=== PATIENT | male | born 1930 | race Caucasian/White ===

== ENCOUNTER 2016-09-15 09:53 | Emergency (ER) | payer MEDICARE, OTHER ==
[2016-09-15] MEDS ORDERED: LIDOCAINE 1% 2 ML VIAL ONE (10:28)
--- NOTE | 2016-09-15 11:42 | ED Physician Documentation ---
PD HPI HEAD INJURY - Stated complaint Stated Complaint: L FACIAL LAC - Chief complaint Chief Complaint: Laceration - History obtained from History obtained from: Patient, Family - History of Present Illness Mechanism of head injury: Fell Where head injury occurred: Home Timing - onset: Today Location of injury: Left (eye) Quality of pain: Pain Associated symptoms: Other (large laceration under the left eye). No: LOC, AMS , Amnesia, Nausea / vomiting, Neck pain, Paresthesias, Seizures, Ear drainage, Nasal drainage Symptoms improve with: Rest Symptoms worsen with: Palpation, Movement Similar symptoms before: Has not had sx before Recently seen: Not recently seen - Additional information Additional information: 85 y/o male with a history of hypertension was breaking a stick in his yard today and when the stick broke he fell forward onto a tree stump and contused his left lower eyelid. No LOC but a large laceration directly below the eye. He has no obstruction to movement of the left eye and he has no visual changes. Review of Systems Constitutional: denies: Fever, Chills, Myalgias Eyes: denies: Loss of vision, Decreased vision, Photophobia, Discharge, Irritation Ears: denies: Ear pain Nose: denies: Rhinorrhea / runny nose, Congestion Throat: denies: Sore throat Cardiac: denies: Chest pain / pressure, Palpitations Respiratory: denies: Dyspnea, Cough GI: denies: Abdominal Pain, Nausea, Vomiting, Constipation, Diarrhea : denies: Dysuria Skin: reports: Laceration (s) Musculoskeletal: denies: Neck pain, Back pain, Extremity pain Neurologic: reports: Head injury. denies: Headache, LOC PD PAST MEDICAL HISTORY - Present Medications Home Medications: Ambulatory Orders Medication Instructions Recorded Confirmed Aspirin 81 mg PO 09/15/16 Atenolol 50 mg PO 09/15/16 Atorvastatin [Lipitor] 0 mg 09/15/16 Citalopram Hydrobromide 40 mg PO 09/15/16 [Citalopram HBr] Enalapril [Vasotec] 09/15/16 Fexofenadine HCl [Hayley Allergy] 60 mg PO 09/15/16 Fludrocortisone [Florinef] 0.1 mg PO DAILY 09/15/16 09/15/16 Furosemide 40 mg PO 09/15/16 Montelukast [Singulair] 10 mg PO QPM 09/15/16 09/15/16 metFORMIN [Glucophage] 500 mg PO BIDWM 09/15/16 09/15/16 - Allergies Allergies/Adverse Reactions: Allergies Allergy/AdvReac Type Severity Reaction Status Date / Time cephalexin monohydrate * Allergy Unknown Verified 09/15/16 12:48 [From Keflex] guaifenesin [From Mucinex] Allergy Unknown Verified 09/15/16 10:03 Penicillins Allergy Unknown Verified 09/15/16 10:03 tetracycline Allergy Unknown Verified 09/15/16 10:03 PD ED PE NORMAL - Vitals Vital signs reviewed: Yes (normal ) - General General: No acute distress, Well developed/nourished, Other (A pleasant 85 y/o male who appears younger than his stated age. ) - HEENT HEENT: PERRL, EOMI, Other (There is a 4cm laceration under the left eye over the cheek and below the eyelid. The eye itself is not involved and deeper structures are not involved. 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, No motor deficit, No sensory deficit, Normal speech - Psych Psych: Normal mood, Normal affect Results - Vitals Vitals: Vital Signs - 24 hr 09/15/16 09/15/16 09:59 12:06 Temperature 37.2 C Heart Rate 69 61 Respiratory 14 16 Rate Blood Pressure 140/69 H 123/62 O2 Saturation 96 98 Oxygen O2 Source Room air Procedures - Laceration (location) left cheek Length in cm: 4 Wound type: Linear, Flap, Clean Neurovascular status: Sensory intact, Motor intact, Vascular intact Anesthesia: Lidocaine 1% Wound Preparation: Hibiclens, Irrigated copiously NS, Wound explored, To the base Skin layer closure: Nylon, Running, Size #-0 - enter number (6-0) Other: Patient tolerated well, No complications, Neurovascular intact Complexity: Simple PD MEDICAL DECISION MAKING - ED course Complexity details: re-evaluated patient, considered differential, d/w patient, d/w family ED course: 85 y/o Otherwise well male has fallen today against a tree stump and lacerated his left cheek. He has a flap laceration under the left eye that consists of a thin layer of skin which is reapproximated to the lid and the patient tolerates this well. Departure - Departure Disposition: 01 Home, Self Care Clinical Impression: Laceration of cheek Qualifiers: Encounter type: initial encounter Laterality: left Qualified Code(s): S01.412A - Laceration without foreign body of left cheek and temporomandibular area, initial encounter Condition: Stable Instructions: ED Laceration Facial Sutr Tape Follow-Up: Keron Ching MD [Primary Care Provider] - Comments: sutures out in 5 days Discharge Date/Time: 09/15/16 12:08
[2016-09-15 12:08] VITALS: BP 123/62
== END 2016-09-15 12:08 | disposition home or self-care (01) ==
LOC: ED 09:53
DX: S01.412A Laceration without foreign body of left cheek and temporomandibular area, initial encounter (principal); W19.XXXA Unspecified fall, initial encounter; W22.09XA Striking against other stationary object, initial encounter; Y93.89 Activity, other specified; Y92.007 Garden or yard of unspecified non-institutional (private) residence as the place of occurrence of the external cause; I10 Essential (primary) hypertension
CPT/HCPCS: 12013; 99282; 99283

== ENCOUNTER 2017-12-07 23:03 | Emergency (ER) | payer MEDICARE, OTHER ==
[2017-12-07] MEDS ORDERED: ONDANSETRON 4 MG/2 ML VIAL IVP STA (23:13)
[2017-12-07] MEDS ORDERED: SODIUM CHLORIDE 0.9% 1,000 ML IV ONE (23:13)
--- NOTE | 2017-12-07 23:14 | ED Physician Documentation ---
PD HPI NVD - Stated complaint Stated Complaint: VOMITING - History obtained from History obtained from: Patient, Family - History of Present Illness Timing - onset: Today Timing - details: Gradual onset, Still present Associated symptoms: Abdominal pain Contributing factors: No: Sick contact, Bad food Similar symptoms before: No diagnosis Recently seen: Not recently seen - Additonal information Additional information: Patient is an 87 year old male who is presenting to the emergency department for nausea and vomiting. patient reports a little discomfort this morning, but was ok throughout the day. patient had spaghetti and meatballs for dinner and this evening had multiple episodes of vomiting. Review of Systems Ten Systems: 10 systems reviewed and negative Constitutional: reports: Chills Cardiac: denies: Chest pain / pressure, Palpitations Respiratory: denies: Dyspnea, Cough GI: reports: Abdominal Pain, Nausea, Vomiting. denies: Constipation, Diarrhea : denies: Dysuria, Frequency PD PAST MEDICAL HISTORY - Past Medical History Cardiovascular: Hypertension, High cholesterol Respiratory: None Endocrine/Autoimmune: None GI: GERD : None HEENT: None Psych: Depression Musculoskeletal: Other Derm: None - Past Surgical History Past Surgical History: Yes General: Cholecystectomy, Other Ortho: Rotator cuff repair, Carpal Tunnel surgery Cardiovascular: Cardiac catheterization, Other Neuro: Other - Present Medications Home Medications: Ambulatory Orders Medication Instructions Recorded Confirmed Aspirin 81 mg PO 09/15/16 Atenolol 50 mg PO 09/15/16 Atorvastatin [Lipitor] 0 mg 09/15/16 Citalopram Hydrobromide 40 mg PO 09/15/16 [Citalopram HBr] Enalapril [Vasotec] 09/15/16 Fexofenadine HCl [Hayley Allergy] 60 mg PO 09/15/16 Fludrocortisone [Florinef] 0.1 mg PO DAILY 09/15/16 09/15/16 Furosemide 40 mg PO 09/15/16 Montelukast [Singulair] 10 mg PO QPM 09/15/16 09/15/16 metFORMIN [Glucophage] 500 mg PO BIDWM 09/15/16 09/15/16 Ondansetron Odt [Zofran] 4 mg TL Q6H PRN #14 tablet 12/08/17 - Allergies Allergies/Adverse Reactions: Allergies Allergy/AdvReac Type Severity Reaction Status Date / Time cephalexin monohydrate * Allergy Unknown Verified 12/07/17 23:16 [From Keflex] guaifenesin [From Mucinex] Allergy Unknown Verified 12/07/17 23:16 Penicillins Allergy Unknown Verified 12/07/17 23:16 tetracycline Allergy Unknown Verified 12/07/17 23:16 - Social History Does the pt smoke?: No Smoking Status: Never smoker - Immunizations Immunizations are current?: Yes PD ED PE NORMAL - Vitals Vital signs reviewed: Yes - General General: Alert and oriented X 3 - HEENT HEENT: Atraumatic - Cardiac Cardiac: RRR - Respiratory Respiratory: No respiratory distress - Derm Derm: Normal color, Warm and dry - Extremities Extremities: No deformity - Neuro Neuro: Alert and oriented X 3, No motor deficit, Normal speech Eye Opening: Spontaneous PD ED PE EXPANDED - HEENT HEENT: Dry mucous membranes - Abdomen Abdomen: Tender to palpation, Generalized/diffuse Results - Vitals Vitals: Vital Signs - 24 hr 12/07/17 12/08/17 12/08/17 23:12 00:39 01:25 Temperature 37.6 C H Heart Rate 87 88 Respiratory 22 17 28 H Rate Blood Pressure 151/84 H 119/71 O2 Saturation 100 95 12/08/17 02:57 Temperature Heart Rate 96 Respiratory 21 Rate Blood Pressure 107/55 L O2 Saturation 98 Oxygen O2 Source Room air - EKG (time done) 2319 Rate: Rate (enter#) (86) Rhythm: NSR [place]: Normal Intervals: Normal AR QRS: Normal - Labs Labs: Laboratory Tests 12/07/17 12/07/17 12/07/17 23:20 23:20 23:20 WBC 3.7 L RBC 4.25 L Hgb 13.6 L Hct 39.7 L MCV 93.6 MCH 32.1 H MCHC 34.3 RDW 13.8 Plt Count 207 MPV 7.9 Neut # (Auto) 3.0 Lymph # (Auto) 0.6 L [place] # (Auto) 0.0 Eos # (Auto) 0.0 Baso # (Auto) 0.0 Absolute Nucleated RBC 0.00 Nucleated RBC % 0.1 Sodium 137 Potassium 3.8 Chloride 102 Carbon Dioxide 24 Anion Gap 11.0 BUN 25 H Creatinine 1.4 H Estimated GFR (MDRD) 48 L Glucose 133 H Calcium 8.8 Total Bilirubin 0.9 AST 88 H ALT 80 H Alkaline Phosphatase 107 Troponin I < 0.04 B-Natriuretic Peptide Total Protein 7.4 Albumin 4.2 Globulin 3.2 Albumin/Globulin Ratio 1.3 Lipase 46 Urine Color Urine Clarity Urine pH Ur Specific [place] Urine Protein Urine Glucose (UA) Urine Ketones Urine Occult Blood Urine Nitrite Urine Bilirubin Urine Urobilinogen Ur Leukocyte Esterase Ur Microscopic Review Urine Culture Comments 12/07/17 12/08/17 12/08/17 23:20 01:00 02:05 WBC RBC Hgb Hct MCV MCH MCHC RDW Plt Count MPV Neut # (Auto) Lymph # (Auto) [place] # (Auto) Eos # (Auto) Baso # (Auto) Absolute Nucleated RBC Nucleated RBC % Sodium Potassium Chloride Carbon Dioxide Anion Gap BUN Creatinine Estimated GFR (MDRD) Glucose Calcium Total Bilirubin AST ALT Alkaline Phosphatase Troponin I 0.05 B-Natriuretic Peptide 171 H Total Protein Albumin Globulin Albumin/Globulin Ratio Lipase Urine Color YELLOW Urine Clarity CLEAR Urine pH 6.0 Ur Specific [place] 1.020 Urine Protein NEGATIVE Urine Glucose (UA) NEGATIVE Urine Ketones NEGATIVE Urine Occult Blood NEGATIVE Urine Nitrite NEGATIVE Urine Bilirubin NEGATIVE Urine Urobilinogen 0.2 (NORMAL) Ur Leukocyte Esterase NEGATIVE Ur Microscopic Review NOT INDICATED Urine Culture Comments NOT INDICATED - Rads (name of study) ct abd pelvis Radiology: Final report received (no acute findings) PD MEDICAL DECISION MAKING - ED course Complexity details: reviewed old records, reviewed results, re-evaluated patient, considered differential, d/w patient ED course: Patient was seen and examined at bedside. iv access was gained and labs were drawn. patient was treated with a fluid bolus and zofran. ekg was performed and showed no acute abnormalities. Imaging was ordered. When patient returned from imaging he was re-evaluated. patient's nausea had improved and patient was able to tolerate po. Patient's diagnostics were within normal limits and patient was stable for discharge with outpatient followup. - Sepsis Event Vital Signs: Vital Signs - 24 hr 12/07/17 12/08/17 12/08/17 23:12 00:39 01:25 Temperature 37.6 C H Heart Rate 87 88 Respiratory 22 17 28 H Rate Blood Pressure 151/84 H 119/71 O2 Saturation 100 95 12/08/17 02:57 Temperature Heart Rate 96 Respiratory 21 Rate Blood Pressure 107/55 L O2 Saturation 98 Oxygen O2 Source Room air Departure - Departure Disposition: 01 Home, Self Care Clinical Impression: Nausea & vomiting Condition: Good Instructions: ED Nausea Vomiting Follow-Up: primary,care provider [Other] [facility] [Provider Group] - Tomorrow Prescriptions: Ondansetron Odt [Zofran] 4 mg TL Q6H PRN #14 tablet PRN Reason: Nausea / Vomiting Comments: Your diagnostics today are within normal limits. You have been prescribed zofran for nausea and stay well hydrated. You should follow up with the [facility] to find a primary care physician. You should return to the emergency department for new, worsening or uncontrollable symptoms. Discharge Date/Time: 12/08/17 02:58
[2017-12-07 23:29] LABS: BASOPHILS % (AUTO) 0.4 %; EOSINOPHILS % (AUTO) 1.1 %; HGB - HEMOGLOBIN 13.6 g/dL (14.0-18.0); LYMPHOCYTES # (AUTO) 0.6 10^3/uL (1.5-3.5); LYMPHOCYTES % (AUTO) 16.4 %; MEAN CORPUSCULAR HEMOGLOBIN 32.1 pg (27.0-31.0); MEAN CORPUSCULAR HGB CONC 34.3 g/dL (32.0-36.0); MEAN CORPUSCULAR VOLUME 93.6 fL (80.0-94.0); MEAN PLATELET VOLUME 7.9 fL (7.4-11.4); MONOCYTES % (AUTO) 0.6 %; NEUTROPHILS % (AUTO) 81.5 %; PLT - PLATELET COUNT 207 10^3/uL (130-450); RED BLOOD COUNT 4.25 10^6/uL (4.70-6.10); RED CELL DISTRIBUTION WIDTH 13.8 % (12.0-15.0); WHITE BLOOD COUNT 3.7 x10^3/uL (4.8-10.8)
--- NOTE | 2017-12-07 23:39 | XRAY Report ---
Reason: chest pain Procedure Date: 12/07/2017 Accession Number: [id number] / [id number] Procedure: XR - Chest 1 View X-Ray CPT Code: 82890 FULL RESULT: EXAM: CHEST RADIOGRAPHY EXAM DATE: 12/07/2017 11:17 PM. CLINICAL HISTORY: Chest pain. COMPARISON: None. TECHNIQUE: 1 view. FINDINGS: Lungs/Pleura: Minimal left basilar airspace disease. No effusion or pneumothorax. Mediastinum: Changes of previous cardiac surgery. Other: None. IMPRESSION: Minimal left basilar airspace disease. RADIA
[2017-12-07 23:43] LABS: BILIRUBIN,TOTAL 0.9 mg/dL (0.2-1.0); CALCIUM 8.8 mg/dL (8.5-10.3); CREATININE 1.4 mg/dL (0.6-1.2)
[2017-12-07 23:44] LABS: ALBUMIN 4.2 g/dL (3.2-5.5); ALBUMIN/GLOBULIN RATIO 1.3 (1.0-2.2); TOTAL PROTEIN 7.4 g/dL (6.7-8.2)
[2017-12-07] MEDS ORDERED: IOPAMIDOL-300 100 ML VIAL ONE (23:58)
[2017-12-08] MEDS ORDERED: IOPAMIDOL-300 100 ML VIAL IVP ONE (00:47)
--- NOTE | 2017-12-08 01:08 | CT Report ---
Reason: vomiting, abd pain multiple surgeries Procedure Date: 12/08/2017 Accession Number: [id number] / [id number] Procedure: CT - Abdomen/Pelvis W/ CPT Code: FULL RESULT: EXAM: CT ABDOMEN AND PELVIS EXAM DATE: 12/08/2017 12:51 AM. CLINICAL HISTORY: Vomiting, abd pain multiple surgeries. COMPARISONS: None. TECHNIQUE: Routine helical CT imaging was performed through the abdomen and pelvis. IV contrast: 100 ML ISOVUE 300. Enteric contrast: No. Reconstructions: Coronal and sagittal. In accordance with CT protocol optimization, one or more of the following dose reduction techniques were utilized for this exam: automated exposure control, adjustment of mA and/or KV based on patient size, or use of iterative reconstructive technique. FINDINGS: Lung Bases: Small hiatal hernia. Liver: Normal. No masses. Gallbladder/Bile Ducts: Changes of cholecystectomy. No biliary dilatation. Spleen: Normal. Pancreas: Normal. Adrenal Glands: Normal. Kidneys: Incidental cortical cyst. No hydronephrosis or nephrolithiasis. Peritoneal Cavity/Bowel: Normal. No free fluid, free air or adenopathy. No masses or acute inflammatory process. Colonic diverticulosis, without CT evidence of diverticulitis. The appendix is well visualized and normal. Pelvic Organs: Normal. The bladder and visualized pelvic organs are within normal limits. Vasculature: No aneurysms or other significant abnormality. Bones: Degenerative changes. Other: None. IMPRESSION: No evident etiology for patient's nausea and vomiting. RADIA
[2017-12-08 01:12] LABS: BILIRUBIN,URINE NEGATIVE (NEGATIVE); GLUCOSE, URINE (UA) NEGATIVE (NEGATIVE); KETONES,URINE (UA) NEGATIVE (NEGATIVE); LEUKOCYTE ESTERASE, URINE NEGATIVE (NEGATIVE); NITRITE,URINE NEGATIVE (NEGATIVE); OCCULT BLOOD,URINE NEGATIVE (NEGATIVE); PROTEIN,URINE NEGATIVE (NEGATIVE); UROBILINOGEN,URINE 0.2 (NORMAL) E.U./dL (NORMAL)
[2017-12-08 01:14] LABS: CLARITY,URINE CLEAR (CLEAR)
[2017-12-08 02:58] VITALS: BP 107/55
== END 2017-12-08 02:58 | disposition home or self-care (01) ==
LOC: ED 23:03
DX: R11.2 Nausea with vomiting, unspecified (principal); I10 Essential (primary) hypertension
CPT/HCPCS: 36415; 71045; 74177; 80053; 81003; 83690; 83880; 84484; 85025; 93005; 96361; 96374; 99283; 99284; Q9967; 81001; 87086

== ENCOUNTER 2019-08-10 08:32 | Outpatient (CLI) | payer MEDICARE, OTHER ==
--- NOTE | 2019-08-10 16:22 | Nuclear Medicine Report ---
Reason: PROSTATE CA Procedure Date: 08/10/2019 Accession Number: [id number] / [id number] Procedure: NM - Bone Whole Body CPT Code: Final Report FULL RESULT: EXAM: BONE SCAN EXAM DATE: 08/10/2019 01:10 PM. CLINICAL HISTORY: Prostate CA. COMPARISON: ABDOMEN/PELVIS W12/08/2017 12:16 AM. TECHNIQUE: Following the intravenous administration of 30.2 mCi of technetium 99m MDP and an appropriate delay, a whole-body scan was performed in anterior and posterior projections. Spot images were not obtained. FINDINGS: Exam Quality: Normal overall osseous radiotracer uptake. Physiological tracer uptake in bilateral collecting systems. Skull: No focal uptake. Thorax: No focal lesions in ribs or sternum. Pelvis: No focal lesions. Spine: No suspicious focal uptake in the cervical or thoracic or lumbar spine. Small foci of presumed degenerative facet uptake on the sides of the cervical spine. Mild linear presumably degenerative endplate uptake in the midthoracic spine. Extremities: There is a tiny focus of increased tracer uptake in the proximal right femur at the level of the lesser trochanter. Areas of increased tracer uptake in the right shoulder, bilateral wrists, bilateral knees, bilateral ankles, and bilateral feet are presumably degenerative. IMPRESSION: 1. There is a small focus in the proximal right femur which could be a metastasis. 2. No additional highly suspicious findings. Presumed degenerative uptake in several joints. RADIA
== END 2019-08-10 08:33 | disposition home or self-care (01) ==
LOC: DI 08:32
PROVIDERS: ATTEND Internal Medicine Hematology & Oncology
DX: C61 Malignant neoplasm of prostate (principal); R97.20 Elevated prostate specific antigen [PSA]; R93.3 Abnormal findings on diagnostic imaging of other parts of digestive tract; R59.0 Localized enlarged lymph nodes
CPT/HCPCS: 78306

== ENCOUNTER 2020-04-16 09:30 | Emergency (ER) | payer MEDICARE, OTHER ==
--- NOTE | 2020-04-16 09:40 | ED Physician Documentation ---
PD HPI LOWER EXT INJURY - Stated complaint Stated Complaint: RT PX/SWELLING - History obtained from History obtained from: Patient - History of Present Illness PD HPI LOW EXT INJURY LOCATION: Right (89-year-old gentleman with history of prostate cancer and gout presents with atraumatic right foot pain over the last 36 hours or so. It hurts to walk but pain is not too bad at rest. He declines pain medication on initial evaluation.) Review of Systems Constitutional: denies: Fever, Chills GI: denies: Abdominal Pain, Nausea, Vomiting : reports: Reviewed and negative PD PAST MEDICAL HISTORY - Past Medical History Cardiovascular: Hypertension, High cholesterol Respiratory: None Endocrine/Autoimmune: None GI: GERD : None HEENT: None Psych: Depression Musculoskeletal: Other Derm: None - Past Surgical History Past Surgical History: Yes General: Cholecystectomy, Other Ortho: Rotator cuff repair, Carpal Tunnel surgery Cardiovascular: Cardiac catheterization, Other Neuro: Other - Present Medications Home Medications: Ambulatory Orders Medication Instructions Recorded Confirmed Citalopram Hydrobromide 20 mg PO DAILY 09/15/16 04/16/20 [Citalopram HBr] Enalapril [Vasotec] 5 mg PO BID 09/15/16 04/16/20 Furosemide 40 mg PO BID 09/15/16 04/16/20 atenoloL [Atenolol] 0.5 tab PO BID 09/15/16 04/16/20 Acetaminophen [Arthritis Pain 650 mg PO DAILY 08/01/19 04/16/20 Relief] Cetirizine HCl [Allergy Relief] 10 mg PO BID 08/01/19 04/16/20 Finasteride 5 mg PO DAILY 08/01/19 04/16/20 Flaxseed Oil 1,200 mg PO DAILY 08/01/19 04/16/20 Glucos Sul 2Kcl/MSM/Chond/C/Mn 1 cap PO DAILY 08/01/19 04/16/20 [Glucosamine Chondroitin Cap] Multivitamin 1 tab PO DAILY 08/01/19 04/16/20 Tamsulosin HCl [Flomax] 0.4 mg PO QPM 08/01/19 04/16/20 Vitamin B Complex/Folic Acid 1 tab PO DAILY 08/01/19 04/16/20 [Super B Maxi Complex Caplet] Bicalutamide [Casodex] 50 mg PO DAILY 08/02/19 04/16/20 HYDROcod/ACETAM 5/325 [[place] 5/325] 1 - 2 tab PO Q6H PRN #15 tablet 04/16/20 predniSONE [Deltasone] 60 mg PO DAILY 5 Days #15 tablet 04/16/20 - Allergies Allergies/Adverse Reactions: Allergies Allergy/AdvReac Type Severity Reaction Status Date / Time cephalexin monohydrate * Allergy Unknown Verified 04/16/20 09:44 [From Keflex] guaifenesin [From Mucinex] Allergy Unknown Verified 04/16/20 09:44 Penicillins Allergy Unknown Verified 04/16/20 09:44 tetracycline Allergy Unknown Verified 03/05/20 11:56 - Social History Does the pt smoke?: No Smoking Status: Former smoker Does the pt drink ETOH?: No Does the pt have substance abuse?: No - Immunizations Immunizations are current?: Yes - POLST Patient has POLST: No PD ED PE NORMAL - Vitals Vital signs reviewed: Yes - General General: Alert and oriented X 3, No acute distress - Extremities Extremities: Other (No specific warmth, redness, or tenderness anywhere around the right foot, but he does have pain with passive motion of the great toe. Pulses are weak but capillary refill is normal.) - Neuro Neuro: Alert and oriented X 3, Normal speech Results - Vitals Vitals: Vital Signs - 24 hr 04/16/20 04/16/20 09:34 10:34 Temperature 37.2 C Heart Rate 90 80 Respiratory 16 18 Rate Blood Pressure 155/97 H 120/71 O2 Saturation 97 98 Oxygen O2 Source Room air - Labs Labs: Laboratory Tests 04/16/20 04/16/20 09:46 09:46 WBC 9.8 RBC 3.95 L Hgb 12.5 L Hct 38.2 L MCV 96.7 H MCH 31.6 H MCHC 32.7 RDW 12.8 Plt Count 240 MPV 9.4 Neut # (Auto) 6.0 Lymph # (Auto) 2.5 [place] # (Auto) 1.2 H Eos # (Auto) 0.1 Baso # (Auto) 0.0 Absolute Nucleated RBC 0.00 Nucleated RBC % 0.0 Sodium 142 Potassium 4.1 Chloride 97 L Carbon Dioxide 27 Anion Gap 18.0 H BUN 36 H Creatinine 1.8 H Estimated GFR (MDRD) 36 L Glucose 118 H Uric Acid 8.3 H Calcium 9.5 PD MEDICAL DECISION MAKING - ED course ED course: This is most likely gout exacerbation, but he does not have the typical warmth or redness around the first MTP. He does have pain with passive range of motion of the MTP. Differential diagnosis would include metastases given his known active prostate cancer or very early infection. 89-year-old gentleman presents with what seems like a gout exacerbation. His uric acid level is high, his renal function is at his baseline. Three-view x- ray of the right foot interpreted contemporaneously by me shows osseous erosions of the fourth and middle phalanges. 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 He was not administered colchicine or NSAIDs given his baseline poor renal function. 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 Should be better in a couple of days but follow-up with your doctor regardless. Discharge Date/Time: 04/16/20 10:47
[2020-04-16 09:51] LABS: BASOPHILS % (AUTO) 0.4 %; EOSINOPHILS # (AUTO) 0.1 10^3/uL (0.0-0.7); EOSINOPHILS % (AUTO) 0.7 %; HGB - HEMOGLOBIN 12.5 g/dL (14.0-18.0); LYMPHOCYTES # (AUTO) 2.5 10^3/uL (1.5-3.5); LYMPHOCYTES % (AUTO) 25.2 %; MEAN CORPUSCULAR HEMOGLOBIN 31.6 pg (27.0-31.0); MEAN CORPUSCULAR HGB CONC 32.7 g/dL (32.0-36.0); MEAN CORPUSCULAR VOLUME 96.7 fL (80.0-94.0); MEAN PLATELET VOLUME 9.4 fL (7.4-11.4); MONOCYTES # (AUTO) 1.2 10^3/uL (0.0-1.0); MONOCYTES % (AUTO) 12.3 %; NEUTROPHILS % (AUTO) 61.1 %; PLT - PLATELET COUNT 240 10^3/uL (130-450); RED BLOOD COUNT 3.95 10^6/uL (4.70-6.10); RED CELL DISTRIBUTION WIDTH 12.8 % (12.0-15.0); WHITE BLOOD COUNT 9.8 x10^3/uL (4.8-10.8)
[2020-04-16 10:05] LABS: CALCIUM 9.5 mg/dL (8.5-10.3); CREATININE 1.8 mg/dL (0.6-1.2); URIC ACID 8.3 mg/dL (2.6-7.2)
--- NOTE | 2020-04-16 10:27 | XRAY Report ---
PROCEDURE: Foot 3 View RT INDICATIONS: foot pain TECHNIQUE: 3 views of the foot were acquired. COMPARISON: None FINDINGS: Bones: No fractures or dislocations. Osseous erosions involving the fourth distal and middle phalang es concerning for either neoplastic process or osteomyelitis. Midfoot osteoarthritis. Dorsal and plan tar calcaneal bone spurs. Soft tissues: No tibiotalar joint effusion. Achilles tendon appears normal. Soft tissue swelling i n the fourth digit. No soft tissue gas. IMPRESSION: 1. Osseous erosion involving the fourth distal and middle phalanges which could be related to osteomy elitis or neoplastic process. 2. Osteoarthritis. Reviewed by: Halle Mccullough MD, PhD on 04/16/2020 9:25 AM [facility] Approved by: Halle Mccullough MD, PhD on 04/16/2020 9:25 AM [facility] Station ID: [id number]
[2020-04-16] MEDS ORDERED: predniSONE 20 MG TABLET PO STA (10:33)
[2020-04-16 10:35] VITALS: BP 120/71
== END 2020-04-16 10:47 | disposition home or self-care (01) ==
LOC: ED 09:30
DX: M10.371 Gout due to renal impairment, right ankle and foot (principal); M19.071 Primary osteoarthritis, right ankle and foot; Z85.46 Personal history of malignant neoplasm of prostate; I10 Essential (primary) hypertension; Z87.891 Personal history of nicotine dependence
CPT/HCPCS: 36415; 73630; 80048; 84550; 85025; 99283; 99284; J7512

== ENCOUNTER 2020-08-29 12:08 | Emergency (ER) | payer MEDICARE, OTHER ==
--- OUTSIDE RECORDS SUMMARY | 2020-08-29 12:12 | EXTERNAL MEDICAL SUMMARY RPT | Continuity of Care Document ---
:1930 Demographics Phone Unavailable Preferred Language Canadian Marital Status Unknown Yazdanism Affiliation Unknown Race Unknown Ethnic Group Unknown Author Organization [facility] Address [address] [place] [address] Phone Care Team Providers Name Role Phone Ruth Unavailable Unavailable Allergies Encounters Medications Problems Procedures date description facility [id number] [facility] Results Vital Signs date measurement value source 20200614 temperature_standard 98.4 F 20200614 temperature_metric 36.89 C 20200614 respiration_rate 16 /min 20200614 heart_rate 81 /min 20200614 BP_systolic 130 mm[Hg] [id number] BP_diastolic 79 mm[Hg]
--- NOTE | 2020-08-29 12:41 | XRAY Report ---
PROCEDURE: Chest 1 View X-Ray INDICATIONS: Chest Pain TECHNIQUE: One view of the chest was acquired. COMPARISON: Chest xray 08/29/20 FINDINGS: Surgical changes and devices: None. Lungs and pleura: No pleural effusions or pneumothorax. Mild increased pulmonary vascularity. Mediastinum: Mediastinal contours appear normal. Heart size is normal. Bones and chest wall: No suspicious bony lesions. Overlying soft tissues appear unremarkable. IMPRESSION: Mild increased pulmonary vascularity suggestive of edema. Reviewed by: Natali Jansen MD on 08/29/2020 12:40 PM PDT Approved by: Natali Jansen MD on 08/29/2020 12:40 PM PDT Station ID: [id number]
[2020-08-29 12:43] LABS: BASOPHILS # (AUTO) 0.1 10^3/uL (0.0-0.1); BASOPHILS % (AUTO) 0.5 %; EOSINOPHILS # (AUTO) 0.6 10^3/uL (0.0-0.7); EOSINOPHILS % (AUTO) 6.3 %; HCT - HEMATOCRIT 36.7 % (42.0-52.0); HGB - HEMOGLOBIN 12.2 g/dL (14.0-18.0); LYMPHOCYTES # (AUTO) 2.5 10^3/uL (1.5-3.5); LYMPHOCYTES % (AUTO) 24.4 %; MEAN CORPUSCULAR HEMOGLOBIN 31.7 pg (27.0-31.0); MEAN CORPUSCULAR HGB CONC 33.2 g/dL (32.0-36.0); MEAN CORPUSCULAR VOLUME 95.3 fL (80.0-94.0); MEAN PLATELET VOLUME 9.3 fL (7.4-11.4); MONOCYTES # (AUTO) 0.8 10^3/uL (0.0-1.0); MONOCYTES % (AUTO) 7.7 %; NEUTROPHILS # (AUTO) 6.1 10^3/uL (1.5-6.6); NEUTROPHILS % (AUTO) 60.8 %; PLT - PLATELET COUNT 265 10^3/uL (130-450); RED BLOOD COUNT 3.85 10^6/uL (4.70-6.10); RED CELL DISTRIBUTION WIDTH 13.2 % (12.0-15.0); WHITE BLOOD COUNT 10.1 x10^3/uL (4.8-10.8)
--- OUTSIDE RECORDS SUMMARY | 2020-08-29 12:46 | EXTERNAL MEDICAL SUMMARY RPT | Continuity of Care Document ---
:1930 Demographics Phone Unavailable Preferred Language Salvadorean Marital Status Unknown Shinto Affiliation Unknown Race Unknown Ethnic Group Unknown Author Organization [facility] Address [address] [place] [address] Phone Care Team Providers Name Role Phone Ruth Unavailable Unavailable Allergies Encounters Medications Problems Procedures date description facility [id number] [facility] Results Vital Signs date measurement value source 20200614 temperature_standard 98.4 F 20200614 temperature_metric 36.89 C 20200614 respiration_rate 16 /min 20200614 heart_rate 81 /min 20200614 BP_systolic 130 mm[Hg] [id number] BP_diastolic 79 mm[Hg]
[2020-08-29 12:56] LABS: ALBUMIN 4.3 g/dL (3.2-5.5); ALBUMIN/GLOBULIN RATIO 1.4 (1.0-2.2); BILIRUBIN,TOTAL 0.5 mg/dL (0.2-1.0); CALCIUM 9.7 mg/dL (8.5-10.3); CREATININE 1.7 mg/dL (0.6-1.2); TOTAL PROTEIN 7.3 g/dL (6.7-8.2)
[2020-08-29 12:57] VITALS: BP 107/76
[2020-08-29] MEDS ORDERED: IPRATROPIUM/ALBUTEROL 3 ML NEB INH STA (13:32)
[2020-08-29] MEDS ORDERED: predniSONE 20 MG TABLET PO STA (13:34)
--- NOTE | 2020-08-29 13:36 | ED Physician Documentation ---
PD HPI DYSPNEA - Stated complaint Stated Complaint: trouble breathing, high pulse - Chief complaint Chief Complaint: Resp - History obtained from History obtained from: Patient, Family - History of Present Illness Timing - details: Gradual onset Pain level max: 0 Pain level now: 0 Improved by: Rest Worsened by: Exertion Associated symptoms: Cough (mild, dry), Wheezing. No: Fever, Hemoptysis, Chest pain / discomfort, Palpitations, Diaphoresis, Bilateral edema, Unilateral edema Recently seen: Not recently seen - Additional information Additional information: Patient is an 89-year-old male who presents to the emergency department stating that he has had difficulty breathing for the past several months, worse over the past 2 to 3 days. He is accompanied by his . Better with rest, worse with exertion. He states he uses his albuterol inhaler about 1 time per day. He is on another inhaler, but does not know what it is. He states he uses that 1 time per day as well. No chest pain. No leg swelling. No fevers. has been vaccinated for COVID. No chills. Review of Systems Ten Systems: 10 systems reviewed and negative Constitutional: denies: Fever, Chills Nose: denies: Rhinorrhea / runny nose, Congestion Respiratory: reports: Cough (mild, dry) GI: denies: Abdominal Pain, Nausea, Vomiting, Diarrhea PD PAST MEDICAL HISTORY - Past Medical History Cardiovascular: Hypertension, High cholesterol Respiratory: None Endocrine/Autoimmune: None GI: GERD : None HEENT: None Psych: Depression Musculoskeletal: Other Derm: None - Past Surgical History Past Surgical History: Yes General: Cholecystectomy, Other Ortho: Rotator cuff repair, Carpal Tunnel surgery Cardiovascular: Cardiac catheterization, Other Neuro: Other - Present Medications Home Medications: Ambulatory Orders Medication Instructions Recorded Confirmed Citalopram Hydrobromide 20 mg PO DAILY 09/15/16 06/04/20 [Citalopram HBr] Enalapril [Vasotec] 5 mg PO BID 09/15/16 06/04/20 Furosemide 40 mg PO BID 09/15/16 06/04/20 atenoloL [Atenolol] 0.5 tab PO BID 09/15/16 06/04/20 Acetaminophen [Arthritis Pain 650 mg PO DAILY 08/01/19 06/04/20 Relief] Cetirizine HCl [Allergy Relief] 10 mg PO BID 08/01/19 06/04/20 Finasteride 5 mg PO DAILY 08/01/19 06/04/20 Flaxseed Oil 1,200 mg PO DAILY 08/01/19 06/04/20 Glucos Sul 2Kcl/MSM/Chond/C/Mn 1 cap PO DAILY 08/01/19 06/04/20 [Glucosamine Chondroitin Cap] Multivitamin 1 tab PO DAILY 08/01/19 06/04/20 Tamsulosin HCl [Flomax] 0.4 mg PO QPM 08/01/19 06/04/20 Vitamin B Complex/Folic Acid 1 tab PO DAILY 08/01/19 06/04/20 [Super B Maxi Complex Caplet] Bicalutamide [Casodex] 50 mg PO DAILY 08/02/19 06/04/20 HYDROcod/ACETAM 5/325 [[place] 5/325] 1 - 2 tab PO Q6H PRN #15 tablet 04/16/20 06/04/20 predniSONE [Deltasone] 60 mg PO DAILY 5 Days #15 tablet 04/16/20 06/04/20 predniSONE [Deltasone] 40 mg PO DAILY #10 tablet 08/29/20 - Allergies Allergies/Adverse Reactions: Allergies Allergy/AdvReac Type Severity Reaction Status Date / Time cephalexin monohydrate * Allergy Unknown Verified 08/29/20 12:17 [From Keflex] guaifenesin [From Mucinex] Allergy Unknown Verified 08/29/20 12:17 Penicillins Allergy Unknown Verified 08/29/20 12:17 tetracycline Allergy Unknown Verified 08/29/20 12:17 - Social History Does the pt smoke?: No Smoking Status: Former smoker Does the pt drink ETOH?: No Does the pt have substance abuse?: No - Immunizations Immunizations are current?: Yes - POLST Patient has POLST: No PD ED PE NORMAL - Vitals Vital signs reviewed: Yes - General General: Alert and oriented X 3, No acute distress, Well developed/nourished - HEENT HEENT: PERRL, Moist mucous membranes - Neck Neck: Supple, no meningeal sign - Cardiac Cardiac: RRR - Respiratory Respiratory: No respiratory distress, Other (Diffuse wheezing bilaterally) - Abdomen Abdomen: Soft, Non tender, Non distended - Derm Derm: Warm and dry, No rash - Extremities Extremities: No edema, No calf tenderness / cord - Neuro Neuro: Alert and oriented X 3 - Psych Psych: Normal mood, Normal affect Results - Vitals Vitals: Vital Signs - 24 hr 08/29/20 08/29/20 08/29/20 12:14 12:57 13:53 Temperature 36.5 C Heart Rate 94 88 74 Respiratory 24 18 14 Rate Blood Pressure 113/65 107/76 O2 Saturation 95 97 Oxygen O2 Source Room air - EKG (time done) 1244 Rate: Rate (enter#) (81) Rhythm: Other (PAC) [place]: Normal Intervals: Normal MA QRS: Normal Ischemia: Normal ST segments - Labs Labs: Laboratory Tests 08/29/20 08/29/20 08/29/20 12:35 12:35 12:35 WBC 10.1 RBC 3.85 L Hgb 12.2 L Hct 36.7 L MCV 95.3 H MCH 31.7 H MCHC 33.2 RDW 13.2 Plt Count 265 MPV 9.3 Neut # (Auto) 6.1 Lymph # (Auto) 2.5 Orange # (Auto) 0.8 Eos # (Auto) 0.6 Baso # (Auto) 0.1 Absolute Nucleated RBC 0.00 Nucleated RBC % 0.0 Sodium 140 Potassium 4.0 Chloride 99 L Carbon Dioxide 27 Anion Gap 14.0 H BUN 32 H Creatinine 1.7 H Estimated GFR (MDRD) 38 L Glucose 136 H Calcium 9.7 Total Bilirubin 0.5 AST 33 ALT 33 Alkaline Phosphatase 91 Troponin I High Sens 15.5 B-Natriuretic Peptide Total Protein 7.3 Albumin 4.3 Globulin 3.0 Albumin/Globulin Ratio 1.4 Lipase 53 H 08/29/20 12:35 WBC RBC Hgb Hct MCV MCH MCHC RDW Plt Count MPV Neut # (Auto) Lymph # (Auto) Orange # (Auto) Eos # (Auto) Baso # (Auto) Absolute Nucleated RBC Nucleated RBC % Sodium Potassium Chloride Carbon Dioxide Anion Gap BUN Creatinine Estimated GFR (MDRD) Glucose Calcium Total Bilirubin AST ALT Alkaline Phosphatase Troponin I High Sens B-Natriuretic Peptide 36 Total Protein Albumin Globulin Albumin/Globulin Ratio Lipase - Rads (name of study) cxr Radiology: Prelim report reviewed, EMP read contemporaneously, See rad report (Mild increased pulmonary vascularity suggestive of edema. ) PD MEDICAL DECISION MAKING - ED course Complexity details: reviewed results, re-evaluated patient, considered differential, d/w patient, d/w family ED course: Is an 89-year-old male with what appears to be a COPD flare. Feels much better after DuoNeb treatment. Will place on steroids and inhalers for home. He has an albuterol inhaler at home but does not use it often. Recommend that he use this regularly. Also recommend he use his other inhaler regularly. He will follow up with his doctor for further care. No acute findings on laboratory testing, EKG or chest x-ray. No hypoxia. No respiratory distress. Patient and family counseled regarding signs and symptoms for which I believe and urgent re- evaluation would be necessary. Patient with good understanding of and agreement to plan and is comfortable going home at this time This document was made in part using voice recognition software. While efforts are made to proofread this document, sound alike and grammatical errors may occur. Departure - Departure Disposition: 01 Home, Self Care Clinical Impression: COPD exacerbation Condition: Good Instructions: ED COPD Flare Follow-Up: Roderick Ruth MD [Primary Care Provider] - Within 1 week Prescriptions: predniSONE [Deltasone] 40 mg PO DAILY #10 tablet Comments: Should be using your albuterol inhaler at least 3-4 times per day. You should be using this with the spacer. You need to follow-up with your doctor closely to see if you need to adjust your other medications. Return if you worsen. Discharge Date/Time: 08/29/20 15:43
== END 2020-08-29 15:43 | disposition home or self-care (01) ==
LOC: ED 12:08
DX: J44.1 Chronic obstructive pulmonary disease with (acute) exacerbation (principal); I49.1 Atrial premature depolarization; I10 Essential (primary) hypertension; Z87.891 Personal history of nicotine dependence
CPT/HCPCS: 36415; 71045; 80053; 83690; 83880; 84484; 85025; 93005; 94640; 99284; J7512

== ENCOUNTER 2020-11-15 05:01 | Emergency (ER) | payer MEDICARE, OTHER ==
[2020-11-15] MEDS ORDERED: EPINEPHrine 1 MG/ML AMP IM STA (05:08)
[2020-11-15] MEDS ORDERED: DEXAMETHASONE 10 MG/ML VIAL IVP STA (05:09)
[2020-11-15] MEDS ORDERED: diphenhydrAMINE INJ 50 MG/ML VIAL IVP STA (05:09)
--- NOTE | 2020-11-15 05:11 | ED Physician Documentation ---
History of Present Illness - Stated complaint Stated Complaint: CAITLIN DAVIDSON - History obtained from History obtained from: Patient, Family - History of Present Illness Timing: Prior to arrival - Additonal information Additional information: 89-year-old male has awoken with acute swelling of his tongue. He is having hard time talking and he is on Enalipril Review of Systems Constitutional: denies: Fever Eyes: denies: Decreased vision Ears: denies: Ear pain Nose: denies: Congestion Throat: reports: Other (swollen tongue) Cardiac: denies: Chest pain / pressure Respiratory: denies: Dyspnea, Cough GI: denies: Abdominal Pain, Nausea, Vomiting, Constipation, Diarrhea : denies: Dysuria Skin: denies: Rash Musculoskeletal: denies: Neck pain, Back pain, Extremity pain Neurologic: denies: Generalized weakness, Focal weakness, Numbness PD PAST MEDICAL HISTORY - Past Medical History Cardiovascular: Hypertension, High cholesterol Respiratory: None Neuro: None Endocrine/Autoimmune: None GI: GERD : None HEENT: None Psych: Depression Musculoskeletal: Other Derm: None - Past Surgical History Past Surgical History: Yes General: Cholecystectomy, Other Ortho: Rotator cuff repair, Carpal Tunnel surgery Cardiovascular: Cardiac catheterization, Other Neuro: Other - Present Medications Home Medications: Ambulatory Orders Medication Instructions Recorded Confirmed Citalopram Hydrobromide 20 mg PO DAILY 09/15/16 11/15/20 [Citalopram HBr] Enalapril [Vasotec] 5 mg PO BID 09/15/16 11/15/20 Furosemide 40 mg PO BID 09/15/16 11/15/20 atenoloL [Atenolol] 0.5 tab PO BID 09/15/16 11/15/20 Acetaminophen [Arthritis Pain 650 mg PO DAILY 08/01/19 11/15/20 Relief] Cetirizine HCl [Allergy Relief] 10 mg PO BID 08/01/19 11/15/20 Finasteride 5 mg PO DAILY 08/01/19 11/15/20 Glucos Sul 2Kcl/MSM/Chond/C/Mn 1 cap PO DAILY 08/01/19 11/15/20 [Glucosamine Chondroitin Cap] Multivitamin 1 tab PO DAILY 08/01/19 11/15/20 Tamsulosin HCl [Flomax] 0.4 mg PO QPM 08/01/19 11/15/20 Vitamin B Complex/Folic Acid 1 tab PO DAILY 08/01/19 11/15/20 [Super B Maxi Complex Caplet] flaxseed oiL [Flaxseed Oil] 1,200 mg PO DAILY 08/01/19 11/15/20 Bicalutamide [Casodex] 50 mg PO DAILY 08/02/19 11/15/20 HYDROcod/ACETAM 5/325 [[place] 5/325] 1 - 2 tab PO Q6H PRN #15 tablet 04/16/20 11/15/20 predniSONE [Deltasone] 60 mg PO DAILY 5 Days #15 tablet 04/16/20 11/15/20 predniSONE [Deltasone] 40 mg PO DAILY #10 tablet 08/29/20 11/15/20 - Allergies Allergies/Adverse Reactions: Allergies Allergy/AdvReac Type Severity Reaction Status Date / Time enalapril Allergy Severe Anaphylaxis Verified 11/15/20 05:23 cephalexin monohydrate * Allergy Unknown Verified 08/29/20 12:17 [From Keflex] guaifenesin [From Mucinex] Allergy Unknown Verified 08/29/20 12:17 Penicillins Allergy Unknown Verified 08/29/20 12:17 tetracycline Allergy Unknown Verified 08/29/20 12:17 - Social History Does the pt smoke?: No Smoking Status: Former smoker Does the pt drink ETOH?: No Does the pt have substance abuse?: No - Immunizations Immunizations are current?: Yes - POLST Patient has POLST: No PD ED PE NORMAL - Vitals Vital signs reviewed: Yes (hypertensive ) - General General: Alert and oriented X 3, No acute distress, Well developed/nourished, Other (thick tongue talk) - HEENT HEENT: Atraumatic, PERRL, EOMI, Other (marked swelling under the tongue and not to the uvula) - Neck Neck: Supple, no meningeal sign, No bony TTP - Cardiac Cardiac: RRR, No murmur, Other (single heart sound ) - Respiratory Respiratory: No respiratory distress, Clear bilaterally - Abdomen Abdomen: Soft, Non tender - Back Back: No CVA TTP, No spinal TTP - Derm Derm: Normal color, Warm and dry, No rash - Extremities Extremities: No deformity, No edema - Neuro Neuro: Alert and oriented X 3, ventilator specialist 2-12 intact, No motor deficit, No sensory deficit, Other (thick tongue talk ) Eye Opening: Spontaneous Motor: Obeys Commands Verbal: Oriented GCS Score: 15 - Psych Psych: Normal mood, Normal affect Results - Vitals Vitals: Vital Signs - 24 hr 11/15/20 11/15/20 11/15/20 05:08 05:10 05:27 Temperature 36.4 C L 36.4 C L Heart Rate 94 94 88 Respiratory 16 16 23 Rate Blood Pressure 149/80 H 149/80 H 109/61 O2 Saturation 97 97 93 11/15/20 11/15/20 11/15/20 05:40 06:10 06:30 Temperature Heart Rate 81 80 79 Respiratory 19 17 23 Rate Blood Pressure 116/62 133/79 H 110/71 O2 Saturation 92 98 93 11/15/20 07:00 Temperature Heart Rate 76 Respiratory 18 Rate Blood Pressure 108/69 O2 Saturation 93 Oxygen O2 Source Room air PD MEDICAL DECISION MAKING - ED course Complexity details: reviewed old records, reviewed results, re-evaluated patient, considered differential, d/w family ED course: 89-year-old male on enalapril has developed an acute swollen tongue in the middle of the night and he comes into the emergency department without difficulty breathing but difficult time talking. He does not have any swelling to the uvula. He is administered epinephrine 0.3 mg IM and intravenous Benadryl and dexamethasone 50 and 10. He has improvement. At shift change care is turned over to Dr. Rothman with expectation of continued improvement. Departure - Departure Clinical Impression: Angioedema Qualifiers: Encounter type: initial encounter Qualified Code(s): T78.3XXA - Angioneurotic edema, initial encounter Condition: Stable Instructions: ED Angioedema Follow-Up: Roderick Ruth MD [Primary Care Provider] - Comments: today it appears the swelling to your tongue is related to the use of enalipril and you will need to stop this medication. You may or may not need to replace this medication with a different blood pressure control medication follow up with Dr. Ruth. In the mean time the recommendation is to take benadryl 25mg every 6 hours for the next 2 days (or a non-sedating antihistamine such as joshua or zyrtec)
[2020-11-15 08:33] VITALS: BP 118/76
--- NOTE | 2020-11-15 08:46 | ED Physician Documentation ---
ED Addendum - Addendum Addendum: 11/15/20 08:46 Patient signed out to me by Dr. Tesfaye, he has had steady improvement throughout an observation period. At this point he is still talking little funny and there is angioedema of the anterolateral left side of the tongue but the retropharynx and posterior oropharynx are well visualized and without any evidence of angioedema. Counseled at length not to take enalapril or any blood pressure medicines in that class ending in "pril." Disposition: Discharged home Condition: Stable
== END 2020-11-15 08:59 | disposition home or self-care (01) ==
LOC: ED 05:01
DX: T78.3XXA Angioneurotic edema, initial encounter (principal); I10 Essential (primary) hypertension
CPT/HCPCS: 36415; 96372; 96374; 96375; 99283; J1200

== ENCOUNTER 2021-01-28 15:06 | Outpatient (CLI) | payer MEDICARE, OTHER | END 2021-01-28 23:59 | disposition critical access hospital (66) | LOC: EMS 15:06 | DX: R26.81 Unsteadiness on feet (principal) | CPT/HCPCS: A0425; A0429 ==

== ENCOUNTER 2021-01-28 15:26 | Emergency (ER) | payer MEDICARE, OTHER ==
[2021-01-28] MEDS ORDERED: SODIUM CHLORIDE 0.9% 1,000 ML IV STA (15:39)
--- NOTE | 2021-01-28 15:42 | ED Physician Documentation ---
History of Present Illness - Stated complaint Stated Complaint: SWOLLEN FEET - History obtained from History obtained from: Patient - Additonal information Additional information: Patient comes emergency department chief complaint of bilateral lower extremity weakness that started when patient was in [employer] yesterday. When asked what he thinks may have triggered this, he just states "old age". Patient states he has not felt sick with anything recently. He has a longstanding history of COPD and smoked all of his adult life until 20 years ago. He does not use home O2. Patient states he also has asthmatic bronchitis. He states he has a chronic cough but that the cough is not any worse now than it usually is. No dysuria. No nausea or vomiting. No abdominal pain. Patient states he has noticed some increased edema in his lower extremities but that he always has some degree of edema. He states that when he was at [employer] yesterday it was hard for him to get up from the pew. He also felt a little "wobbly" when he was walking. No other complaints at this time. No weakness in his upper extremities. No focal weakness in 1 leg or the other. No back pain. Review of Systems Ten Systems: 10 systems reviewed and negative Constitutional: reports: Reviewed and negative Eyes: reports: Reviewed and negative Ears: reports: Reviewed and negative Nose: reports: Reviewed and negative Throat: reports: Reviewed and negative Cardiac: reports: Reviewed and negative Respiratory: reports: Reviewed and negative GI: reports: Reviewed and negative : reports: Reviewed and negative Skin: reports: Reviewed and negative Musculoskeletal: reports: Extremity swelling Neurologic: reports: Generalized weakness (bilateral lower ext), Reviewed and negative Psychiatric: reports: Reviewed and negative Endocrine: reports: Reviewed and negative Immunocompromised: reports: Reviewed and negative PD PAST MEDICAL HISTORY - Past Medical History Cardiovascular: Hypertension, High cholesterol Respiratory: None Neuro: None Endocrine/Autoimmune: None GI: GERD : None HEENT: None Psych: Depression Musculoskeletal: Other Derm: None - Past Surgical History Past Surgical History: Yes General: Cholecystectomy, Other Ortho: Rotator cuff repair, Carpal Tunnel surgery Cardiovascular: Cardiac catheterization, Other Neuro: Other - Present Medications Home Medications: Ambulatory Orders Medication Instructions Recorded Confirmed Citalopram Hydrobromide 20 mg PO DAILY 09/15/16 12/05/20 [Citalopram HBr] Furosemide 40 mg PO BID 09/15/16 12/05/20 atenoloL [Atenolol] 0.5 tab PO BID 09/15/16 12/05/20 Acetaminophen [Arthritis Pain 650 mg PO DAILY 08/01/19 12/05/20 Relief] Cetirizine HCl [Allergy Relief] 10 mg PO BID 08/01/19 12/05/20 Finasteride 5 mg PO DAILY 08/01/19 12/05/20 Glucos Sul 2Kcl/MSM/Chond/C/Mn 1 cap PO DAILY 08/01/19 12/05/20 [Glucosamine Chondroitin Cap] Multivitamin 1 tab PO DAILY 08/01/19 12/05/20 Tamsulosin HCl [Flomax] 0.4 mg PO QPM 08/01/19 12/05/20 Vitamin B Complex/Folic Acid 1 tab PO DAILY 08/01/19 12/05/20 [Super B Maxi Complex Caplet] flaxseed oiL [Flaxseed Oil] 1,200 mg PO DAILY 08/01/19 12/05/20 Bicalutamide [Casodex] 50 mg PO DAILY 08/02/19 12/05/20 HYDROcod/ACETAM 5/325 [Shandon 5/325] 1 - 2 tab PO Q6H PRN #15 tablet 04/16/20 12/05/20 predniSONE [Deltasone] 60 mg PO DAILY 5 Days #15 tablet 04/16/20 12/05/20 predniSONE [Deltasone] 40 mg PO UD PRN 12/05/20 12/05/20 Potassium Chloride [K-Dur] 20 meq PO DAILY #10 tablet 01/28/21 - Allergies Allergies/Adverse Reactions: Allergies Allergy/AdvReac Type Severity Reaction Status Date / Time enalapril Allergy Severe Anaphylaxis Verified 11/15/20 05:23 cephalexin monohydrate * Allergy Unknown Verified 08/29/20 12:17 [From Keflex] guaifenesin [From Mucinex] Allergy Unknown Verified 08/29/20 12:17 Penicillins Allergy Unknown Verified 08/29/20 12:17 tetracycline Allergy Unknown Verified 08/29/20 12:17 - Social History Does the pt smoke?: No Smoking Status: Former smoker Does the pt drink ETOH?: No Does the pt have substance abuse?: No - Immunizations Immunizations are current?: Yes - POLST Patient has POLST: No PD ED PE NORMAL - Vitals Vital signs reviewed: Yes - General General: Alert and oriented X 3, No acute distress, Well developed/nourished - HEENT HEENT: Atraumatic, PERRL, EOMI, Moist mucous membranes - Neck Neck: Supple, no meningeal sign - Cardiac Cardiac: RRR, No murmur, Strong equal pulses - Respiratory Respiratory: No respiratory distress, Clear bilaterally - Abdomen Abdomen: Soft, Non tender, Non distended - Derm Derm: Normal color, Warm and dry, No rash - Extremities Extremities: No deformity, No edema, No calf tenderness / cord - Neuro Neuro: Alert and oriented X 3, 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, No motor deficit, No sensory deficit, Normal speech - Psych Psych: Normal mood, Normal affect Results - Vitals Vitals: Vital Signs - 24 hr 01/28/21 01/28/21 01/28/21 15:34 16:19 18:37 Temperature 37.4 C 37.5 C 37.4 C Heart Rate 95 85 105 H Respiratory 20 22 22 Rate Blood Pressure 143/93 H 152/96 H 143/88 H O2 Saturation 93 93 93 01/28/21 01/28/21 01/28/21 20:00 20:33 21:08 Temperature 37.3 C Heart Rate 99 91 91 Respiratory 21 21 21 Rate Blood Pressure 138/82 H 110/65 110/65 O2 Saturation 95 95 95 Oxygen O2 Source Room air - Labs Labs: Laboratory Tests 01/28/21 01/28/21 01/28/21 14:15 14:15 14:15 WBC 10.8 RBC 3.95 L Hgb 12.4 L Hct 36.8 L MCV 93.2 MCH 31.4 H MCHC 33.7 RDW 13.5 Plt Count 239 MPV 9.8 Neut # (Auto) 6.4 Lymph # (Auto) 2.8 Josephine # (Auto) 1.5 H Eos # (Auto) 0.1 Baso # (Auto) 0.0 Absolute Nucleated RBC 0.00 Nucleated RBC % 0.0 ESR Sodium 132 L Potassium 3.2 L Chloride 92 L Carbon Dioxide 27 Anion Gap 13.0 BUN 38 H Creatinine 1.6 H Estimated GFR (MDRD) 41 L Glucose 130 H Calcium 8.7 Total Bilirubin 0.7 AST 24 ALT 20 Alkaline Phosphatase 70 C-Reactive Protein B-Natriuretic Peptide 48 Total Protein 7.8 Albumin 4.3 Globulin 3.5 Albumin/Globulin Ratio 1.2 Lipase 47 Urine Color Urine Clarity Urine pH Ur Specific [place] Urine Protein Urine Glucose (UA) Urine Ketones Urine Occult Blood Urine Nitrite Urine Bilirubin Urine Urobilinogen Ur Leukocyte Esterase Ur Microscopic Review Urine Culture Comments Nasal Adenovirus (PCR) Nasal B. parapertussis DNA (PCR) Nasal Coronavir 229E PCR Nasal Coronavir HKU1 PCR Nasal Coronavir NL63 PCR Nasal Coronavir OC43 PCR Nasal Enterovir/Rhinovir PCR Nasal Influenza B PCR Nasal Influenza A PCR Nasal Parainfluen 1 PCR Nasal Parainfluen 2 PCR Nasal Parainfluen 3 PCR Nasal Parainfluen 4 PCR Nasal RSV (PCR) Nasal B.pertussis DNA PCR Nasal C.pneumoniae (PCR) Silas Human Metapneumo PCR Nasal M.pneumoniae (PCR) Nasal SARS-CoV-2 (PCR) 01/28/21 01/28/21 01/28/21 17:25 18:17 18:40 WBC RBC Hgb Hct MCV MCH MCHC RDW Plt Count MPV Neut # (Auto) Lymph # (Auto) Josephine # (Auto) Eos # (Auto) Baso # (Auto) Absolute Nucleated RBC Nucleated RBC % ESR 37 H Sodium Potassium Chloride Carbon Dioxide Anion Gap BUN Creatinine Estimated GFR (MDRD) Glucose Calcium Total Bilirubin AST ALT Alkaline Phosphatase C-Reactive Protein B-Natriuretic Peptide Total Protein Albumin Globulin Albumin/Globulin Ratio Lipase Urine Color YELLOW Urine Clarity CLEAR Urine pH 5.5 Ur Specific [place] 1.020 Urine Protein NEGATIVE Urine Glucose (UA) NEGATIVE Urine Ketones NEGATIVE Urine Occult Blood TRACE-INTA Urine Nitrite NEGATIVE Urine Bilirubin NEGATIVE Urine Urobilinogen 0.2 (NORMAL) Ur Leukocyte Esterase NEGATIVE Ur Microscopic Review NOT INDICATED Urine Culture Comments NOT INDICATED Nasal Adenovirus (PCR) NOT DETECTED Nasal B. parapertussis DNA (PCR) NOT DETECTED Nasal Coronavir 229E PCR NOT DETECTED Nasal Coronavir HKU1 PCR NOT DETECTED Nasal Coronavir NL63 PCR NOT DETECTED Nasal Coronavir OC43 PCR NOT DETECTED Nasal Enterovir/Rhinovir PCR NOT DETECTED Nasal Influenza B PCR NOT DETECTED Nasal Influenza A PCR NOT DETECTED Nasal Parainfluen 1 PCR NOT DETECTED Nasal Parainfluen 2 PCR NOT DETECTED Nasal Parainfluen 3 PCR NOT DETECTED Nasal Parainfluen 4 PCR NOT DETECTED Nasal RSV (PCR) NOT DETECTED Nasal B.pertussis DNA PCR NOT DETECTED Nasal C.pneumoniae (PCR) NOT DETECTED [place] Human Metapneumo PCR NOT DETECTED Nasal M.pneumoniae (PCR) NOT DETECTED Nasal SARS-CoV-2 (PCR) NOT DETECTED 01/28/21 18:40 WBC RBC Hgb Hct MCV MCH MCHC RDW Plt Count MPV Neut # (Auto) Lymph # (Auto) Josephine # (Auto) Eos # (Auto) Baso # (Auto) Absolute Nucleated RBC Nucleated RBC % ESR Sodium Potassium Chloride Carbon Dioxide Anion Gap BUN Creatinine Estimated GFR (MDRD) Glucose Calcium Total Bilirubin AST ALT Alkaline Phosphatase C-Reactive Protein 10.1 H B-Natriuretic Peptide Total Protein Albumin Globulin Albumin/Globulin Ratio Lipase Urine Color Urine Clarity Urine pH Ur Specific [place] Urine Protein Urine Glucose (UA) Urine Ketones Urine Occult Blood Urine Nitrite Urine Bilirubin Urine Urobilinogen Ur Leukocyte Esterase Ur Microscopic Review Urine Culture Comments Nasal Adenovirus (PCR) Nasal B. parapertussis DNA (PCR) Nasal Coronavir 229E PCR Nasal Coronavir HKU1 PCR Nasal Coronavir NL63 PCR Nasal Coronavir OC43 PCR Nasal Enterovir/Rhinovir PCR Nasal Influenza B PCR Nasal Influenza A PCR Nasal Parainfluen 1 PCR Nasal Parainfluen 2 PCR Nasal Parainfluen 3 PCR Nasal Parainfluen 4 PCR Nasal RSV (PCR) Nasal B.pertussis DNA PCR Nasal C.pneumoniae (PCR) Sil[place] Human Metapneumo PCR Nasal M.pneumoniae (PCR) Nasal SARS-CoV-2 (PCR) PD MEDICAL DECISION MAKING - ED course Complexity details: reviewed results, re-evaluated patient, considered differential, d/w patient ED course: The patient was very well-appearing in the emergency department but reported weakness of both his lower legs, and so was worked up with laboratory studies. These showed mild hyponatremia and hypokalemia. The patient was given potassium replacement here in the emergency department, as well as a liter of 0.9 normal saline. Remainder of his work-up was unremarkable. The patient was reevaluated with a walk test in the emergency department, and was still found to be quite weak. He also began to complain that his right foot was hurting. At this point in time, the patient signed out to Dr. Mar at change of shift, pending further work-up and reevaluation. Departure - Departure Disposition: 01 Home, Self Care Clinical Impression: Generalized weakness, Foot sprain, Hypokalemia Condition: Good Instructions: ED Splint Care Aircast Splint Boot, ED Sprain Foot, ED Weakness [facility] Follow-Up: [facility] [Provider Group] - Within 1 week Roderick Ruth MD [Primary Care Provider] - Within 1 week Prescriptions: Potassium Chloride [K-Dur] 20 meq PO DAILY #10 tablet Comments: I want you to use the walking boot to help support your foot until it heals. You should be using a walker at all times as well. Your x-rays do not show any acute fractures. This likely represents a soft tissue injury. Please follow-up with orthopedics in 1 week, I spoke with Dr. Honey robins from orthopedics. Your x-ray showed a possible early pneumonia, but as you state your cough is no different than usual and you are not having fevers, will hold antibiotics at this time. If your cough worsens or You begin to develop fevers, return for further care. You should also have your potassium rechecked with your doctor next week. Your prescriptions were sent to [facility] in [place]. Discharge Date/Time: 01/28/21 21:07
[2021-01-28 16:31] LABS: BASOPHILS % (AUTO) 0.4 %; EOSINOPHILS # (AUTO) 0.1 10^3/uL (0.0-0.7); EOSINOPHILS % (AUTO) 0.6 %; HCT - HEMATOCRIT 36.8 % (42.0-52.0); HGB - HEMOGLOBIN 12.4 g/dL (14.0-18.0); LYMPHOCYTES # (AUTO) 2.8 10^3/uL (1.5-3.5); LYMPHOCYTES % (AUTO) 26.2 %; MEAN CORPUSCULAR HEMOGLOBIN 31.4 pg (27.0-31.0); MEAN CORPUSCULAR HGB CONC 33.7 g/dL (32.0-36.0); MEAN CORPUSCULAR VOLUME 93.2 fL (80.0-94.0); MEAN PLATELET VOLUME 9.8 fL (7.4-11.4); MONOCYTES # (AUTO) 1.5 10^3/uL (0.0-1.0); MONOCYTES % (AUTO) 13.8 %; NEUTROPHILS # (AUTO) 6.4 10^3/uL (1.5-6.6); NEUTROPHILS % (AUTO) 58.7 %; PLT - PLATELET COUNT 239 10^3/uL (130-450); RED BLOOD COUNT 3.95 10^6/uL (4.70-6.10); RED CELL DISTRIBUTION WIDTH 13.5 % (12.0-15.0); WHITE BLOOD COUNT 10.8 x10^3/uL (4.8-10.8)
[2021-01-28 16:41] LABS: ALBUMIN 4.3 g/dL (3.2-5.5); ALBUMIN/GLOBULIN RATIO 1.2 (1.0-2.2); BILIRUBIN,TOTAL 0.7 mg/dL (0.2-1.0); CALCIUM 8.7 mg/dL (8.5-10.3); CREATININE 1.6 mg/dL (0.6-1.2); POTASSIUM 3.2 mmol/L (3.5-5.0); TOTAL PROTEIN 7.8 g/dL (6.7-8.2)
[2021-01-28 17:37] LABS: BILIRUBIN,URINE NEGATIVE (NEGATIVE); GLUCOSE, URINE (UA) NEGATIVE (NEGATIVE); KETONES,URINE (UA) NEGATIVE (NEGATIVE); LEUKOCYTE ESTERASE, URINE NEGATIVE (NEGATIVE); NITRITE,URINE NEGATIVE (NEGATIVE); OCCULT BLOOD,URINE TRACE-INTA (NEGATIVE); PH,URINE 5.5 PH (5.0-7.5); PROTEIN,URINE NEGATIVE (NEGATIVE); UROBILINOGEN,URINE 0.2 (NORMAL) E.U./dL (NORMAL)
[2021-01-28 17:42] LABS: CLARITY,URINE CLEAR (CLEAR)
[2021-01-28] MEDS ORDERED: POTASSIUM CHLORIDE 20 MEQ TABLET PO STA (17:55)
--- NOTE | 2021-01-28 19:19 | XRAY Report ---
PROCEDURE: Ankle 3 View RT x-ray INDICATIONS: R foot/ankle pain TECHNIQUE: 3 views of the ankle were acquired. COMPARISON: None FINDINGS: Bones: No fractures or dislocations. Ankle mortise is normally aligned. No suspicious bony lesions . Joint space narrowing and small osteophytes noted in the midfoot. Soft tissues: No tibiotalar joint effusion. Achilles tendon appears normal. Posterior and plantar calcaneal spurs are present. Diffuse small vessel sclerotic vascular calcification. IMPRESSION: Degenerative changes and small vessel atherosclerosis. Reviewed by: Cayetano Romero MD on 01/28/2021 6:[address] [facility] Approved by: Cayetano Romero MD on 01/28/2021 6:[address] [facility] Station ID: [id number]
--- NOTE | 2021-01-28 19:20 | XRAY Report ---
PROCEDURE: Foot 3 View RT x-ray INDICATIONS: R foot/ankle pain TECHNIQUE: 3 views of the foot were acquired. COMPARISON: None FINDINGS: Bones: Intratarsal joint space narrowing and marginal osteophytes noted. Posterior and plantar calcan eal spurs present. Small vessel atherosclerotic vascular calcification seen. Soft tissues: No tibiotalar joint effusion. Achilles tendon appears normal. IMPRESSION: Degenerative changes without fracture or lytic lesion. Reviewed by: Cayetano Romero MD on 01/28/2021 6:19 PM [facility] Approved by: Cayetano Romero MD on 01/28/2021 6:19 PM [place] Station ID: [id number]
--- NOTE | 2021-01-28 19:22 | XRAY Report ---
PROCEDURE: Chest 1 View X-Ray INDICATIONS: cough TECHNIQUE: One view of the chest was acquired. COMPARISON: 08/29/2020 FINDINGS: Surgical changes and devices: Midline sternal wires present. Lungs and pleura: Mild left basilar atelectasis and or infiltrate. Mediastinum: Mediastinal contours appear normal. Heart size is normal. Ectatic thoracic aorta uncha nged. Bones and chest wall: No suspicious bony lesions. Overlying soft tissues appear unremarkable. IMPRESSION: Left basilar atelectasis and or infiltrate Reviewed by: Cayetano Romero MD on 01/28/2021 6:21 PM [place] Approved by: Cayetano Romero MD on 01/28/2021 6:21 PM [facility] Station ID: [id number]
[2021-01-28 19:28] LABS: B. PARAPERTUSSIS- RESP PCR PAN NOT DETECTED; B. PERTUSSIS- RESP PCR PANEL NOT DETECTED; C. PNEUMONIAE- RESP PCR PANEL NOT DETECTED; CORONAVIRUS 229E-RESP PCR NOT DETECTED; CORONAVIRUS HKU1-RESP PCR NOT DETECTED; CORONAVIRUS NL63-RESP PCR NOT DETECTED; CORONAVIRUS OC43-RESP PCR NOT DETECTED; HUMAN METAPNEUMOVIRUS NOT DETECTED; INFLUENZA A- RESP PCR PANEL NOT DETECTED; INFLUENZA B - RESP PCR PANEL NOT DETECTED; M. PNEUMONIAE- RESP PCR PANEL NOT DETECTED; PARAINFLUENZA VIRUS 1 NOT DETECTED; PARAINFLUENZA VIRUS 2 NOT DETECTED; PARAINFLUENZA VIRUS 3 NOT DETECTED; PARAINFLUENZA VIRUS 4 NOT DETECTED; RHINOVIRUS/ENTEROVIRUS NOT DETECTED; RSV- RESP PCR PANEL NOT DETECTED; SARS-CoV-2 -RESP PCR PANEL NOT DETECTED
[2021-01-28 20:34] VITALS: BP 110/65
--- NOTE | 2021-01-28 20:40 | ED Physician Documentation ---
ED Addendum - Addendum Addendum: 01/28/21 20:38 Patient signed out to me by Dr. Gonzáles. The patient was complaining of pain to the right foot, so x-rays of the right foot and ankle were ordered. A chest x-ray was also ordered. No acute findings on x-ray of the foot or ankle. Chest x-ray shows a possible early pneumonia versus atelectasis. Patient denies that his cough is any different than usual. Denies any fevers to me. No leukocytosis. He does not want antibiotics at this time and I think that is reasonable. He was placed into a walking boot and we will have him follow-up with orthopedics for further care. Discussed the case with Dr. Méndez. No open wounds or ulcerations on the foot. Patient is very well-appearing, nontoxic. Afebrile. No hypoxia. Ambulating around the room without any difficulty once the walking boot was on place. Patient counseled regarding signs and symptoms for which I believe and urgent re-evaluation would be necessary. Patient with good understanding of and agreement to plan and is comfortable going home at this time This document was made in part using voice recognition software. While efforts are made to proofread this document, sound alike and grammatical errors may occur. Departure - Departure Disposition: 01 Home, Self Care Clinical Impression: Generalized weakness, Hypokalemia Foot sprain Qualifiers: Encounter type: initial encounter Laterality: right Qualified Code(s): S93.601A - Unspecified sprain of right foot, initial encounter Condition: Good Instructions: ED Splint Care Aircast Splint Boot, ED Sprain Foot, ED Weakness [facility] Follow-Up: [facility] [Provider Group] - Within 1 week Roderick Ruth MD [Primary Care Provider] - Within 1 week Prescriptions: Potassium Chloride [K-Dur] 20 meq PO DAILY #10 tablet Comments: I want you to use the walking boot to help support your foot until it heals. You should be using a walker at all times as well. Your x-rays do not show any acute fractures. This likely represents a soft tissue injury. Please follow-up with orthopedics in 1 week, I spoke with Dr. Honey robins from orthopedics. Your x-ray showed a possible early pneumonia, but as you state your cough is no different than usual and you are not having fevers, will hold antibiotics at this time. If your cough worsens or You begin to develop fevers, return for further care. You should also have your potassium rechecked with your doctor next week. Your prescriptions were sent to [facility] in [place]. Discharge Date/Time: 01/28/21 21:07
== END 2021-01-28 21:07 | disposition home or self-care (01) ==
LOC: EDUNIT# → ED 15:26
DX: R53.1 Weakness (principal); E87.1 Hypo-osmolality and hyponatremia; E87.6 Hypokalemia; S93.601A Unspecified sprain of right foot, initial encounter; X58.XXXA Exposure to other specified factors, initial encounter; J44.9 Chronic obstructive pulmonary disease, unspecified; Z87.891 Personal history of nicotine dependence; I10 Essential (primary) hypertension; Z20.822 Contact with and (suspected) exposure to COVID-19
CPT/HCPCS: 36415; 71045; 73610; 73630; 80053; 81003; 83690; 83880; 85025; 85651; 86140; 87631; 96360; 99284; A9270; 0202U; 81001; 87086

== ENCOUNTER 2021-08-20 07:32 | Outpatient (CLI) | payer MEDICARE, OTHER ==
[2021-08-20 07:59] LABS: ALBUMIN 3.9 g/dL (3.2-5.5); ALKALINE PHOSPHATASE 72 IU/L (42-121); ALT ALANINE AMINOTRANSFERASE 25 IU/L (10-60); AST ASPARTATE AMINOTRANSFERASE 25 IU/L (10-42); BILIRUBIN,TOTAL 0.6 mg/dL (0.2-1.0); BUN - BLOOD UREA NITROGEN 36 mg/dL (6-20); CALCIUM 9.3 mg/dL (8.5-10.3); CARBON DIOXIDE - CO2 25 mmol/L (21-32); CHLORIDE 99 mmol/L (101-111); CHOL/HDL RATIO 2.8 (<5.0); CHOLESTEROL 152 mg/dL; CREATININE 1.4 mg/dL (0.6-1.2); GFR - MDRD 48 (>89); GLUCOSE 129 mg/dL (70-100); HDL CHOLESTEROL 55 mg/dL; LDL CHOLESTEROL,CALCULATED 83 mg/dL; LDL/HDL RATIO 1.5 (<3.6); POTASSIUM 4.1 mmol/L (3.5-5.0); SODIUM 137 mmol/L (135-145); TRIGLYCERIDES 70 mg/dL; VLDL CHOLESTEROL 14 mg/dL
== END 2021-08-20 07:33 | disposition home or self-care (01) ==
LOC: LAB 07:32
PROVIDERS: ATTEND Internal Medicine Cardiovascular Disease
DX: E78.5 Hyperlipidemia, unspecified (principal)
CPT/HCPCS: 36415; 80053; 80061; 83721